=== PATIENT | female | born 1950 | race Caucasian/White ===

== ENCOUNTER → 2016-07-10 | Outpatient (CLI) | payer OTHER ==
--- NOTE | 2016-07-10 13:52 | MAMMOGRAPHY REPORT ---
BILATERAL DIGITAL DIAGNOSTIC MAMMOGRAM TOMOSYNTHESIS WITH CAD AND TARGETED LEFT ULTRASOUND: 7 CLINICAL HISTORY: Six-month follow-up of left breast mass. TECHNIQUE: Breast tomosynthesis in addition to standard 2D mammography was performed. Current study was also evaluated with a Computer Aided Detection (CAD) system. Bilateral CC and MLO 2-D and adama synthesis images were obtained. COMPARISON: Comparison is made to exams dated: 01/14/2016 ultrasound, 01/14/2016 mammogram, 07/16/2015 ultrasound, and 07/08/2015 mammogram - [facility]. BREAST COMPOSITION: The tissue of both breasts is heterogeneously dense, which may obscure small ma sses. FINDINGS: There are no suspicious masses, calcifications, or areas of architectural distortion note d in either breast. There has been no significant interval change compared to prior exams. A linea r scar marker denotes a scar on the right medial breast. Targeted ultrasound was performed of the area of the previously seen left breast mass. In the left breast at 2:30, 3 cm from the nipple, again noted is an oval circumscribed parallel hypoechoic mass which measures 5 x 2 x 3 mm. This is not significantly changed dating back to the July 2015 exa m, where the mass measured 5 x 4 x 2 mm. Given the benign morphology and stability, the mass is con sidered benign and may represent a complicated cyst or fibroadenoma. An oval anechoic benign simple cyst measuring 3 x 6 mm is seen within the left breast at 2:30 to 3:00, 2 cm from the nipple, not s ignificantly changed. IMPRESSION: ACR BI-RADS CATEGORY 2: BENIGN, TARGETED ULTRASOUND ACR BI-RADS CATEGORY 2: BENIGN The benign-appearing 5 mm left 2:30 breast mass is stable dating back to the July 2015 exam. Gi shirlene the benign morphology and stability, the mass is considered benign. There is no mammographic or targeted sonographic evidence of malignancy. A 1 year screening mammogram is recommended. The fawn ent has been verbally notified of the results. Approximately 10% of breast cancers are not detected with mammography. A negative mammographic repor t should not delay biopsy if a clinically suggestive mass is present. Marily Schafer M.D. ah/:07/10/2016 10:35:43 [employer] Combination: Katie HERRON(R)(M), [facility] letter sent: Normal 1/2 BI-RADS Code: ACR BI-RADS Category 2: Benign Ultrasound BI-RADS: ACR BI-RADS Category 2: Benign
--- NOTE | 2016-07-14 10:07 | CODING QUERY NO DIAGNOSIS ---
TREATMENT RENDERED WITHOUT A DIAGNOSIS Gary SALEH, To promote full compliance with coding requirements relating to patient care, physician participation is requested in all cases of medical biller coder uncertainty. Please assist us with providing a diagnosis/symptom for the test(s) below: A diagnosis/symptom was not documented on your Order. A valid diagnosis/symptom is required to bill all insurances. Please remember that we are unable to code a diagnosis of rule out, probable, possible, questionable, or suspected. Tests that require a diagnosis: * BILATERAL DIAG TOMOSYNTHESIS DIAGNOSIS: * DIAGNOSTIC MAMMO W/ CAD DIAGNOSIS: * ULTRASOUND BREAST LIMITED DIAGNOSIS: DATE OF SERVICE: 07/10/16 Provider Signature: Date: Thank you Delbert Pennington [facility] Information Management Once completed, please kindly fax back to [phone] For questions please call [phone]
== END | disposition home or self-care (01) ==
LOC: C.MAMM 08:43
PROVIDERS: ATTEND Family Medicine
DX: N63 Unspecified lump in breast (principal)

== ENCOUNTER → 2017-07-12 | Outpatient (CLI) | payer OTHER ==
--- NOTE | 2017-07-13 12:57 | MAMMOGRAPHY REPORT ---
BILATERAL DIGITAL SCREENING MAMMOGRAM TOMOSYNTHESIS WITH CAD: 07/12/2017 CLINICAL HISTORY: Routine screening examination. TECHNIQUE: Breast tomosynthesis in addition to standard 2D mammography was performed. Current study was also evaluated with a Computer Aided Detection (CAD) system. COMPARISON: Comparison is made to exams dated: 07/10/2016 mammogram, 01/14/2016 mammogram, 07/16/2015 m ammogram, 07/08/2015 mammogram, 07/06/2014 mammogram, and 06/06/2013 mammogram - [facility]. BREAST COMPOSITION: The tissue of both breasts is heterogeneously dense, which may obscure small mas ses. FINDINGS: The parenchymal pattern is unchanged. No developing mass, architectural distortion or clus ter of suspicious microcalcifications is seen in either breast. IMPRESSION: ACR BI-RADS CATEGORY 2: BENIGN There is no mammographic evidence of malignancy. A 1 year screening mammogram is recommended. The pa tient will receive written notification of the results. Approximately 10% of breast cancers are not detected with mammography. A negative mammographic report should not delay biopsy if a clinically suggestive mass is present. Mayra Tejada M.D. ay/:07/12/2017 15:58:00 Clinical Material Handler: Jocelin HERRON(Radha)(M), [facility] letter sent: Normal 1/2 BI-RADS Code: ACR BI-RADS Category 2: Benign
== END | disposition home or self-care (01) ==
LOC: C.MAMM 12:10
PROVIDERS: ATTEND Family Medicine
DX: Z12.31 Encounter for screening mammogram for malignant neoplasm of breast (principal)